=== PATIENT | male | born 1960 | race Caucasian/White ===

== ENCOUNTER → 2017-03-20 | Outpatient (CLI) | payer MEDICARE, OTHER ==
--- NOTE | 2017-03-20 15:18 | RADIOLOGY REPORT (SQ) ---
EXAM DESCRIPTION: MRI LUMBAR SPINE WITHOUT COMPLETED DATE/TIME: 03/20/2017 1:29 pm REASON FOR STUDY: LUMBOSACRAL RADICULOPATHY (M54.17) M54.17 RADICULOPATHY, LUMBOSACRAL REGION COMPARISON: None. TECHNIQUE: Sagittal and Axial imaging includes T1, T2, STIR and gradient echo sequences. Coronal T2/ HASTE imaging. LIMITATIONS: None. FINDINGS: VISUALIZED UPPER ABDOMEN: Limited evaluation. No acute or suspicious findings suggested. SEGMENTATION: No transitional anatomy. The lowest well-developed disc space is labeled L5-S1. ALIGNMENT: Slight retrolisthesis of L2 over L3. Grade 1 anterolisthesis of L5 over S1. VERTEBRAE: Intact. BONE MARROW: Marrow edema along the vertebral body endplates at L5 -S1. Marrow edema along the spino us processes at the L3-4 level sagittal image 18. Marrow edema along the articular processes of the facet joints bilaterally at L4-5. DISC SIGNAL: Diffuse decreased T2 weighted intervertebral disc signal. Disc space loss of height at L2-3, and L5-S1. POSTERIOR ELEMENTS: Bilateral pars defect at L5 HARDWARE: None in the spine. CORD AND CONUS: Normal in size and signal intensity. Conus at the mid L1 level. SOFT TISSUES: No aortic aneurysm seen. No bulky retroperitoneal adenopathy or mass. No paraspinal mas s or fluid. T11-12: Mild bilateral facet hypertrophy. No central or foraminal stenosis T12-L1: Mild bilateral facet hypertrophy. No central or foraminal stenosis. L1-L2: No significant spinal stenosis or exit foraminal stenosis. Mild bilateral facet hypertrophy. L2-L3: Minimal retrolisthesis of L2 over L3 is present. Mild bilateral facet and ligament hypertroph y. No central stenosis. Mild bilateral inferior foraminal narrowing without exiting L2 nerve root i mpingement. L3-L4: No posterior disc bulging. Moderate bilateral facet and ligament hypertrophy. No central jagruti nosis. Mild bilateral inferior foraminal narrowing left greater than right without exiting L3 nerve root impingement. L4-L5: Minimal posterior disc bulging, moderate bilateral facet and ligament hypertrophy. No central stenosis. Mild bilateral inferior foraminal narrowing without exiting L4 nerve root impingement. L5-S1: 25% anterolisthesis of L5 over S1 related to bilateral spondylolysis. No central stenosis. M oderate bilateral foraminal narrowing without exiting L5 nerve root impingement. SACRUM: Visualized upper sacrum intact. OTHER: No other significant findings. IMPRESSION: Diffuse degenerative changes as above. TECHNICAL DOCUMENTATION: JOB ID: [id number] [employer]- All Rights Reserved
== END ==
LOC: RAD 12:31
PROVIDERS: ATTEND Pain Medicine Pain Medicine
DX: M54.17 Radiculopathy, lumbosacral region (principal)
CPT/HCPCS: 72148

== ENCOUNTER → 2017-12-27 | Outpatient (CLI) | payer MEDICARE, OTHER ==
--- NOTE | 2017-12-27 11:21 | RADIOLOGY REPORT (SQ) ---
EXAM DESCRIPTION: SACROILIAC JOINTS 3 OR MORE COMPLETED DATE/TIME: 12/27/2017 11:08 am REASON FOR STUDY: LUMBAR RADICULOPATHY (M54.16) M54.16 RADICULOPATHY, LUMBAR REGION COMPARISON: Lumbar spine films same date NUMBER OF VIEWS: Three views. TECHNIQUE: AP and oblique views of the sacroiliac joints. LIMITATIONS: None. FINDINGS: Normal bone density. Visualized sacrum and SI joints are normal. There is bilateral L5 spondylolysis with L4-5 and L5-S1 facet arthropathy IMPRESSION: SI joints are unremarkable. Bilateral L5 spondylolysis TECHNICAL DOCUMENTATION: JOB ID: [id number] [email or web address] ([employer])- All Rights Reserved Reading location - IP/workstation name: [email or web address]
--- NOTE | 2017-12-27 11:23 | RADIOLOGY REPORT (SQ) ---
EXAM DESCRIPTION: L SPINE WHOLE COMPLETED DATE/TIME: 12/27/2017 11:08 am REASON FOR STUDY: LUMBAR RADICULOPATHY (M54.16) M54.16 RADICULOPATHY, LUMBAR REGION COMPARISON: Lumbar spine MRI 03/20/2017 NUMBER OF VIEWS: Five views including obliques. TECHNIQUE: AP, lateral, oblique, and sacral radiographic images acquired of the lumbar spine. LIMITATIONS: None. FINDINGS: MINERALIZATION: Normal bone density SEGMENTATION: Normal. No transitional anatomy. ALIGNMENT: Convex leftward lumbar curvature. 25% anterolisthesis of L5 over S1 related to bilateral L5 spondylolysis VERTEBRAE: Maintained height. No fracture or worrisome bone lesion. DISCS: Significant disc space loss of height at L2-3 and L5-S1 POSTERIOR ELEMENTS: Bilateral L5 spondylolysis HARDWARE: None in the spine. PARASPINAL SOFT TISSUES: Normal. PELVIS: Not included in the field of view OTHER: Lap band prosthesis left upper quadrant IMPRESSION: Degenerative convex leftward lumbar curvature. 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 TECHNICAL DOCUMENTATION: JOB ID: [id number] [employer]- All Rights Reserved Reading location - IP/workstation name: [email or web address]
== END ==
LOC: RAD 10:27
PROVIDERS: ATTEND Pain Medicine Pain Medicine
DX: M54.16 Radiculopathy, lumbar region (principal)
CPT/HCPCS: 72110; 72202